=== PATIENT | male | born 1985 | race Caucasian/White ===

== ENCOUNTER 2020-12-08 14:21 | Emergency (ER) | payer OTHER ==
[~2020-12-08] VITALS: Ht 172.7 cm; Wt 77.1 kg
[2020-12-08] MEDS ORDERED: LIDOCAINE HCL 1% LOCAL INJ 20 ML VIAL INJ ONE (14:30)
[2020-12-08] MEDS ORDERED: TYLENOL # 31 EA PO (15:07)
[2020-12-08] MEDS ORDERED: BACTRIM DS TAB1 EACH PO (15:07)
[2020-12-08] MEDS ORDERED: CEPHALEXIN500 MG PO (15:07)
== END 2020-12-08 16:00 | disposition home or self-care (01) ==
LOC: ER 14:27
DX: L02.415 Cutaneous abscess of right lower limb (principal); R07.89 Other chest pain; V47.5XXA Car driver injured in collision with fixed or stationary object in traffic accident, initial encounter; Y92.488 Other paved roadways as the place of occurrence of the external cause; J45.909 Unspecified asthma, uncomplicated
CPT/HCPCS: 10060; 71101; 99283; J2001